=== PATIENT | female | born 1975 | race Caucasian/White ===

== ENCOUNTER 2024-03-06 07:55 | Emergency (ER) | payer BC, SELFPAY ==
[2024-03-06 07:57] VITALS: BP 129/87
--- NOTE | 2024-03-06 08:15 | ED.GENMED ---
History of Present Illness
<Rashid Lambert MD, Resident - Last Filed: 03/06/24 12:58>
General
Chief Complaint: Abdominal Pain
Time Seen by Provider: 03/06/24 08:02
History of Present Illness
History of Present Illness:
48-year-old female presented to the ED with history of gastric ulcer with left lower abdominal pain that began yesterday at 5 PM. She rates the pain at 8 out of 10 describing it as constant, stabbing, nonradiating. Th epain is associated with
nausea. She denies vomiting, fever, chills. The pain is not related to fluid intake but it did it does be woke her up at night prompting her to visit to the ED. She was able to eat dinner but did not have an appetite. The patient has a history
of gastric ulcer for which she was being treated as well as history of chronic cholecystectomy and appendicectomy. Patient has a longstanding history of constipation for which she takes MiraLAX twice a day which does not really help. She does
colon preps to help clear the bowel. Patient states that she had a colonoscopy 10 years ago and she was told that she has slow bowel motility. She denies hematochezia, hematuria.
Past History
<Rashid Lambert MD, Resident - Last Filed: 03/06/24 12:58>
Past History
ED Past Medical History: None
ED Past Surgical History: Cholecystectomy, and Gynecological
Social History
Tobacco: Former smoker
Alcohol: Occasional
Drug: None
Personal:
Living: with family
Employment: Employed
Review of Systems
<Rashid Lambert MD, Resident - Last Filed: 03/06/24 12:58>
Review of Systems
ABD/GI: Reports abdominal pain (LLQ) and nausea
Phy Exam
<Rashid Lambert MD, Resident - Last Filed: 03/06/24 12:58>
General Physical Exam
General Presentation: well appearing and mild distress (due to pain )
Cardiovascular Exam
Cardiovascular Exam: regular rate/rhythm and no murmur
Pulmonary Exam
Pulmonary Exam: lungs clear, no crackles and no wheezing
Gastrointestinal Exam
Gastrointestinal Exam: soft, non distended, abnormal bowel sounds (decrease BS) and tender (LLQ)
Neurological Exam
Neurological Exam: alert and oriented x3
Course
<Rashid Lambert MD, Resident - Last Filed: 03/06/24 12:58>
Orders/Labs/Results
Orders:
Orders
03/06/24 08:14
Ketorolac [Toradol] 30 mg IV NOW STA
03/06/24 08:38
CT Abd/pelvis W Iv Cont Urgent
Comment:
Reason For Exam: left lower abdominal pain suspect diverticulitis
03/06/24 08:47
Complete Blood Count/With Diff Urgent
Comprehensive Metabolic Panel Urgent
Lipase Urgent
Abnormal Lab Results
03/06/24
08:47
Lymphocytes % 19.5 L %
(20.5-51.1)
Chloride 109 H mmol/L
(98-107)
Glucose 105 H mg/dl
(70-99)
03/06/24 08:47
03/06/24 08:47
Vital Signs
Initial and Last Documented VS:
Initial Vital Signs
Temp Pulse Resp BP Pulse Ox
98.9 F 77 18 129/87 98
03/06/24 07:57 03/06/24 07:57 03/06/24 07:57 03/06/24 07:57 03/06/24 07:57
Last Documented Vital Signs
Temp Pulse Resp BP Pulse Ox
98.9 F 59 17 116/75 98
03/06/24 07:57 03/06/24 10:00 03/06/24 10:00 03/06/24 10:00 03/06/24 10:00
<Burton Acosta DO - Last Filed: 03/06/24 12:31>
Orders/Labs/Results
Orders:
Orders
03/06/24 08:14
Ketorolac [Toradol] 30 mg IV NOW STA
03/06/24 08:38
CT Abd/pelvis W Iv Cont Urgent
Comment:
Reason For Exam: left lower abdominal pain suspect diverticulitis
03/06/24 08:47
Complete Blood Count/With Diff Urgent
Comprehensive Metabolic Panel Urgent
Lipase Urgent
Abnormal Lab Results
03/06/24
08:47
Lymphocytes % 19.5 L %
(20.5-51.1)
Chloride 109 H mmol/L
(98-107)
Glucose 105 H mg/dl
(70-99)
03/06/24 08:47
03/06/24 08:47
Vital Signs
Initial and Last Documented VS:
Initial Vital Signs
Temp Pulse Resp BP Pulse Ox
98.9 F 77 18 129/87 98
03/06/24 07:57 03/06/24 07:57 03/06/24 07:57 03/06/24 07:57 03/06/24 07:57
Last Documented Vital Signs
Temp Pulse Resp BP Pulse Ox
98.9 F 59 17 116/75 98
03/06/24 07:57 03/06/24 10:00 03/06/24 10:00 03/06/24 10:00 03/06/24 10:00
<Rashid Lambert MD, Resident - Last Filed: 03/06/24 12:58>
*Critical Care Note
Total Time (30-74mins, 75-104mins- exclusive of procedures): Not Applicable
<Rashid Lambert MD, Resident - Last Filed: 03/06/24 12:58>
Update Note
Update Note:
48-year-old female presented to the ED with left lower quadrant pain. Differential diagnosis includes #1 acute diverticulitis #2 renal stones #3 pancreatitis
We will order CT scan of the abdomen pelvis with IV contrast. IV Toradol has been given for pain. We are also checking basic labs including CBC, CMP and lipase. Reassessed patient and patient is stable. She still complains of mild left lower
quadrant pain. As the scans show acute colitis we the plan is to discharge the patient with Augmentin BID for 7 days. Advised to take motrin or tylenol for pain. Return to ED with worsening symptoms like fever, chills, worsening of the abdominal
pain, nausea, vomiting.
IMPRESSION:
There is wall thickening with surrounding stranding and edema along the distal descending/proximal sigmoid colon consistent with acute colitis.
Unchanged 3 mm nonobstructing stone within the right kidney.
ED Attending Note
<Rashid Lambert MD, Resident - Last Filed: 03/06/24 12:58>
-
Portions of this chart may have been created with voice recognition software.� Occasional wrong word or��sound alike� substitutions may have occurred due to the inherent limitations of voice recognition software.
<Burton Acosta, - Last Filed: 03/06/24 12:31>
ED Attending Note
Patient seen and examined by attending physician: Yes
I performed the substantive portion of visit, reviewed & personally made and approve the management plan that is documented in note by myself or NAYELI.: Yes
I performed a history and physical exam of patient and discussed management with resident, I reviewed resident's note and agree with documented findings and plan of care.: Yes
ED Attending Note:
I evaluated patient at bedside. She has left lower quadrant pain. She reports having a 'slow gut' based on colonoscopy from 10 years ago. She denies history of diverticular disease. She has chronic constipation does not feel that her symptoms
currently are related to constipation however. Will obtain CT imaging for further evaluation
Discharge Plan
Departure
Patient Disposition: Home (Routine Discharge)
Date of Disposition: 03/06/24
Time of Disposition: 12:55
Patient with high blood pressure during this ER visit?: No
Discharge Problem:
Acute colitis
Prescriptions:
New
amoxicillin-pot clavulanate 875-125 mg tablet
1 tab PO BID 7 Days Qty: 14 0RF
Rx Instructions:
one tablet to be taken two times a day with food or between meals
No Action
ibuprofen 400 mg Tablet
400 mg PO Q6HPRN PRN (Reason: mild to moderate pain) Qty: 30 0RF
oxycodone 5 mg Tablet
5 mg PO Q4HPRN PRN (Reason: severe pain) Qty: 25 0RF
acetaminophen 325 mg Tablet
650 mg PO Q4HPRN PRN (Reason: mild pain) Qty: 30 0RF
Referrals:
Camilo Ramos CRNP [Family Provider] -
Interventions
Interventions:
*Risk Screen - Suicide Last Done: 03/06/24 07:57
*Neglect/Abuse Screening Last Done: 03/06/24 07:57
*ED COVID-19 Vaccine History Last Done: 03/06/24 07:57
Discharge Date and Time
Print Language: ERITREAN
[2024-03-06] MEDS: TORADOL 30 MG IV (08:43)
[2024-03-06 08:55] LABS: % Eosinophils 2.2 % (0-6); % Immature Granulocytes 0.4 % (0-0.5); % Lymphocytes 19.5 % (20.5-51.1); % Monocytes 6.4 % (1.7-9.3); % Neutrophils 70.5 % (42.2-75.2); Absolute Basophils 0.1 10^3/uL (0-0.2); Absolute Eosinophils 0.2 10^3/uL (0-0.7); Absolute Lymphocytes 1.6 10^3/uL (1.2-3.4); Absolute Monocytes 0.5 10^3/uL (0.1-0.6); Absolute Neutrophils 5.8 10^3/uL (1.4-6.5); Hematocrit 41.8 % (37.0-47.0); Hemoglobin 14.5 g/dL (12.0-16.0); Mean Corp Hgb Conc. 34.7 g/dL (33.0-37.0); Mean Corpuscular Hgb 29.9 pg (27.0-31.0); Mean Corpuscular Volume 86.2 fL (81.0-99.0); Mean Platelet Volume 10.2 fL (7.4-10.4); Nucleated Red Blood Cells % 0 %; Platelet Count 295 10^3/uL (130-400); Red Blood Cell Count 4.85 10^6/uL (4.20-5.40); Red Cell Dist. Width 13.1 % (11.5-14.5); White Blood Cell Count 8.2 10^3/uL (4.8-10.8)
[2024-03-06 09:13] LABS: ALT (SGPT) 15 U/L (0-35); AST (SGOT) 21 U/L (14-36); Albumin 4.2 g/dl (3.5-5.0); Alkaline Phosphatase 75 U/L (38-126); Blood Urea Nitrogen 15 mg/dl (7-17); Calcium 9.4 mg/dl (8.4-10.2); Carbon Dioxide 25 mmol/L (22-30); Chloride 109 mmol/L (98-107); Glucose 105 mg/dl (70-99); Lipase 154 U/L (23-300); Potassium 4.2 mmol/L (3.5-5.1); Sodium 139 mmol/L (135-145); Total Bilirubin 0.4 mg/dl (0.2-1.3); Total Protein 6.6 g/dl (6.3-8.2); eGFR > 60.00
[2024-03-06 10:00] VITALS: BP 116/75
== END 2024-03-06 13:00 | disposition home or self-care (01) ==
LOC: EMR 07:55
PROVIDERS: Student in an Organized Health Care Education/Training Program; EMERGENCY PHYSICIAN Emergency Medicine; FAMILY PHYSICIAN Nurse Practitioner Adult Health
DX: K52.9 Noninfective gastroenteritis and colitis, unspecified (principal); Z87.11 Personal history of peptic ulcer disease; Z87.891 Personal history of nicotine dependence; Z90.49 Acquired absence of other specified parts of digestive tract
CPT/HCPCS: 99284; 96374; 74177; 80053; 83690; 85025; Q9967